=== PATIENT | male | born 1970 | race Caucasian/White ===

== ENCOUNTER 2022-04-10 02:45 | Emergency (ER) | payer OTHER ==
[~2022-04-10] VITALS: Ht 167.6 cm; Wt 68.0 kg
[2022-04-10 02:50] VITALS: BP 127/83
--- NOTE | 2022-04-10 02:53 | NUR ---
TO LOBBY A/W BED AMBULATORY
--- NOTE | 2022-04-10 03:00 | NUR ---
SEEN AND EXAMINED BY MAYE
[2022-04-10] MEDS ORDERED: MIRABULK PO (03:22)
[2022-04-10 03:30] VITALS: BP 127/83
== END 2022-04-10 03:30 | disposition home or self-care (01) ==
LOC: MED 02:45
DX: K59.00 Constipation, unspecified (principal); Z90.49 Acquired absence of other specified parts of digestive tract
CPT/HCPCS: 74018; 99283

== ENCOUNTER 2022-04-30 20:51 | Emergency (ER) | payer OTHER ==
[~2022-04-30] VITALS: Ht 170.2 cm; Wt 68.0 kg
[~2022-04-30 20:51] MED LIST: MIRABULK PO
[2022-04-30 21:00] VITALS: BP 121/90
--- NOTE | 2022-04-30 21:03 | NUR ---
to lobby a/w bed ambulatory
[2022-04-30 21:36] LABS: APPEARANCE,URINE CLEAR (CLEAR); BILIRUBIN,URINE NEGATIVE (NEGATIVE); BLOOD, URINE TRACE-I (NEGATIVE); COLOR,URINE YELLOW (YELLOW); LEUKOCYTE ESTERASE ,URINE NEGATIVE (NEGATIVE); NITRITE, URINE NEGATIVE (NEGATIVE); PH,URINE 5.5 (5.0-9.0); UGLUCOSE NEGATIVE (NEGATIVE)
[2022-04-30 22:06] LABS: RBC,URINE 0-5 /HPF (0-5)
[2022-04-30 22:07] LABS: TRICHOMONAS,URINE None Seen /HPF (None Seen); WBC,URINE 0-5 /HPF (0-5); YEAST,URINE None Seen /HPF (None Seen)
--- NOTE | 2022-04-30 22:14 | NUR ---
PT AMBULATED TO BED #8
--- NOTE | 2022-04-30 22:43 | NUR ---
Dr. Moreno examining patient.
[2022-04-30] MEDS ORDERED: HYDR25SU37 RC (22:51)
[2022-04-30] MEDS ORDERED: NAPR-54 PO (22:51)
--- NOTE | 2022-04-30 23:05 | NUR ---
Written and verbal after care instructions given and explained. Patient alert, oriented and verbalized understanding of instructions. Ambulatory with steady gait. All questions addressed prior to discharge. ID band removed. Patient advised to follow up with PMD. Rx of HYDROCORTISONE ACETATE AND NAPROXEN given. Patient educated on indication of medication including possible reaction and side effects. Opportunity to ask questions provided and answered.
== END 2022-04-30 23:05 | disposition home or self-care (01) ==
LOC: MED 20:51
DX: K62.89 Other specified diseases of anus and rectum (principal); F41.9 Anxiety disorder, unspecified
CPT/HCPCS: 81001; 99283